=== PATIENT | female | born 1990 | race African-American/Black ===

== ENCOUNTER 2017-03-18 02:36 | Observation (INO) | payer MEDICAID, OTHER ==
[~2017-03-18] VITALS: Ht 162.6 cm; Wt 62.1 kg
[2017-03-18] MEDS ORDERED: IRON-1 PO (03:33)
[2017-03-18] MEDS ORDERED: TERBUTALINE SULFATE 1MG/ML VIAL SUBCUT NR (03:45)
[2017-03-18] MEDS ORDERED: LACTATED RINGERS 1,000 ML IV SCH (03:45)
[2017-03-18 03:56] LABS: CLARITY URINE CLEAR (CLEAR); COLOR URINE YELLOW (YELLOW); GLUCOSE URINE NEGATIVE (NEGATIVE); KETONES URINE NEGATIVE (NEGATIVE); LEUKOCYTE ESTERASE URINE NEGATIVE (NEGATIVE); NITRITE URINE NEGATIVE (NEGATIVE); OCCULT BLOOD URINE NEGATIVE (NEGATIVE); PROTEIN URINE NEGATIVE (NEGATIVE); SPECIFIC GRAVITY URINE 1.011 (1.005-1.030); UROBILINOGEN URINE 0.2 E.U./dL (0.2-1.0)
[2017-03-18] MEDS ORDERED: CEFAZOLIN 2,000 MG in DEXT 5% WATER 100 ML IV NR (04:30)
== END 2017-03-18 06:30 | disposition home or self-care (01) ==
LOC: L&D 02:36
PROVIDERS: ADMIT Obstetrics & Gynecology; ATTEND Obstetrics & Gynecology
DX: O26.893 Other specified pregnancy related conditions, third trimester (principal); R10.30 Lower abdominal pain, unspecified; Z3A.36 36 weeks gestation of pregnancy
CPT/HCPCS: 81003; 96361; 96365; 96372; 99281; G0378; J0690; J3105; J7120; 96360; J7060

== ENCOUNTER 2019-02-05 17:04 | Inpatient (IN) | payer MEDICAID, OTHER ==
[~2019-02-05] VITALS: Ht 160 cm; Wt 67.1 kg
[2019-02-05] MEDS ORDERED: PNV1TABL50 PO (17:44)
[2019-02-05 18:34] LABS: CHLORIDE 108 mEq/L (98-107)
[2019-02-05] MEDS: LACTATED RINGERS 1,000 ML IV SCH ×2 (19:11→22:00)
[2019-02-05] MEDS ORDERED: LIDOCAINE HCL 1% 20ML VIAL (Pyxis) INJ INFIL SCH (19:30)
[2019-02-05 19:55] LABS: BASOPHILS % 0.2 % (0.0-2.0); EOSINOPHILS % 0.4 % (0.0-5.0); HEMATOCRIT. 38.4 % (36.0-48.0); HEMOGLOBIN. 13.1 g/dL (12.0-16.0); LYMPHOCYTES % 32.7 % (20.0-50.0); MEAN CORPUSCULAR HEMOGLOBIN 31.9 pg (28.0-32.0); MEAN CORPUSCULAR VOLUME 93.5 fL (81.0-99.0); MEAN PLATELET VOLUME 11.5 fl (7.4-10.4); MONOCYTES % 8.9 % (2.0-8.0); NEUTROPHILS % 57.8 % (40.0-76.0); PLATELET 128 x1000/uL (130-400); RED BLOOD CELL COUNT 4.11 mill/uL (4.2-5.4); RED CELL DISTRIBUTION WIDTH 13.9 % (11.6-14.6)
[2019-02-05] MEDS ORDERED: PENICILLIN G POTASSIUM 5 MMU in DEXT 5% WATER 100 ML IV SCH (20:00)
[2019-02-05 20:02] LABS: INR 0.9; PROTHROMBIN TIME 9.4 sec (9.6-11.0)
[2019-02-05] MEDS ORDERED: DINOPROSTONE 10MG VAGINAL INSERT VG NR (20:30)
[2019-02-05] MEDS ORDERED: ROPIVACAINE HCL/PF EPIDURAL 200 ML EPI SCH (20:45)
[2019-02-05 20:55] LABS: HEPATITIS B SURFACE ANTIGEN NEGATIVE
[2019-02-05] MEDS ORDERED: DIPHENHYDRAMINE 25MG CAPSULE PO NR (22:30)
[2019-02-06] MEDS: BUTORPHANOL TARTRATE 2 MG/ML VIAL IV PRN ×2 (00:32→04:40)
[2019-02-06] MEDS: LACTATED RINGERS 1,000 ML IV SCH ×2 (04:41→06:28)
[2019-02-06 06:20] LABS: CLARITY URINE CLEAR (CLEAR); COLOR URINE YELLOW (YELLOW); KETONES URINE 1+ (NEGATIVE); LEUKOCYTE ESTERASE URINE TRACE (NEGATIVE); NITRITE URINE NEGATIVE (NEGATIVE); OCCULT BLOOD URINE NEGATIVE (NEGATIVE); PROTEIN URINE NEGATIVE (NEGATIVE); SPECIFIC GRAVITY URINE 1.009 (1.005-1.030); UROBILINOGEN URINE 0.2 E.U./dL (0.2-1.0)
[2019-02-06 06:36] LABS: *AMPHETAMINES SCREEN URINE NEGATIVE (NEGATIVE); *BARBITURATES SCREEN URINE NEGATIVE (NEGATIVE); *BENZODIAZEPINES SCREEN URINE NEGATIVE (NEGATIVE); *COCAINE SCREEN URINE NEGATIVE (NEGATIVE); METHADONE URINE SCREEN NEGATIVE (NEGATIVE); OPIATES URINE SCREEN NEGATIVE (NEGATIVE)
[2019-02-06 06:37] LABS: CANNABINOID URINE SCREEN NEGATIVE (NEGATIVE); PHENCYCLIDINE URINE SCREEN NEGATIVE (NEGATIVE)
[2019-02-06] MEDS: DEXT 5%/LR + PITOCIN 20UNITS/L 1,000 ML IV SCH ×2 (09:44→11:31)
[2019-02-06] MEDS ORDERED: MINERAL OIL 30ML BOTTLE PO NR (11:00)
[2019-02-06] MEDS ORDERED: RHO(D) IMMUNE GLOBULIN 300 MCG/SYR IM PRN (13:30)
[2019-02-06] MEDS ORDERED: DEXT 5%/LR + PITOCIN 20UNITS/L 1,000 ML IV SCH (13:30)
[2019-02-06] MEDS ORDERED: IBUPROFEN 400MG TABLET PO PRN (13:30)
[2019-02-06] MEDS ORDERED: LANOLIN OINT 7GM TUBE TOP PRN (13:30)
[2019-02-06] MEDS ORDERED: METHYLERGONOVINE MALEATE 0.2 MG/ML IM PRN (13:30)
[2019-02-06] MEDS ORDERED: DIPHENHYDRAMINE 25MG CAPSULE PO PRN (13:30)
[2019-02-06] MEDS: IBUPROFEN 800MG TABLET PO PRN (13:42)
[2019-02-06 14:00] VITALS: BP 123/76
[2019-02-06 22:00] VITALS: BP 124/70
[2019-02-07 05:35] VITALS: BP 120/72
[2019-02-07 06:39] LABS: BASOPHILS % 0.3 % (0.0-2.0); EOSINOPHILS % 1.2 % (0.0-5.0); HEMATOCRIT. 34.3 % (36.0-48.0); HEMOGLOBIN. 11.6 g/dL (12.0-16.0); LYMPHOCYTES % 39.4 % (20.0-50.0); MEAN CORPUSCULAR HEMOGLOBIN 32.1 pg (28.0-32.0); MEAN CORPUSCULAR VOLUME 94.9 fL (81.0-99.0); MEAN PLATELET VOLUME 11.4 fl (7.4-10.4); MONOCYTES % 8.5 % (2.0-8.0); NEUTROPHILS % 50.6 % (40.0-76.0); PLATELET 106 x1000/uL (130-400); RED BLOOD CELL COUNT 3.62 mill/uL (4.2-5.4); RED CELL DISTRIBUTION WIDTH 13.9 % (11.6-14.6)
[2019-02-07 08:00] VITALS: BP 120/77
[2019-02-07 16:00] VITALS: BP 126/63
[2019-02-07] MEDS: PRENATAL VIT/FE FUMARATE/FA TABLET PO SCH (18:18)
[2019-02-07] MEDS: IBUPROFEN 800MG TABLET PO PRN (18:39)
[2019-02-07 19:15] VITALS: BP 124/78
[2019-02-07 23:44] VITALS: BP 138/80
[2019-02-08 08:00] VITALS: BP 11/68
[2019-02-08] MEDS: PRENATAL VIT/FE FUMARATE/FA TABLET PO SCH (09:27)
[2019-02-08] MEDS ORDERED: MEDROXYPROGESTERONE ACETATE 150MG/ML VIAL IM NR (09:30)
== END 2019-02-08 12:05 | disposition home or self-care (01) | DRG 560 ==
LOC: 8 EST LDRP 17:04 → OBSVTOIN 17:04 → 8EST 02-06 14:26
PROVIDERS: ADMIT Obstetrics & Gynecology; ATTEND Obstetrics & Gynecology
PROC: 10E0XZZ Delivery of Products of Conception, External Approach (ICD-10-PCS; principal; 2019-02-06)
PROC: 3E0R3BZ Introduction of Anesthetic Agent into Spinal Canal, Percutaneous Approach (ICD-10-PCS; 2019-02-06)
PROC: 00HU33Z Insertion of Infusion Device into Spinal Canal, Percutaneous Approach (ICD-10-PCS; 2019-02-06)
PROC: 0HQ9XZZ Repair Perineum Skin, External Approach (ICD-10-PCS; 2019-02-06)
DX: O26.62 Liver and biliary tract disorders in childbirth (principal); K83.1 Obstruction of bile duct; Z37.0 Single live birth; O69.81X0 Labor and delivery complicated by cord around neck, without compression, not applicable or unspecified; Z3A.38 38 weeks gestation of pregnancy; O70.0 First degree perineal laceration during delivery; O90.81 Anemia of the puerperium; D62 Acute posthemorrhagic anemia
CPT/HCPCS: 36415; 76815; 76818; 80305; 81003; 82239; 86592; 86703; 86762; 86850; 86900; 87340; 99281; G0378; J0595; J1050; J2540; J2590; J2795; J7060; Q0163; A4315